=== PATIENT | female | born 1985 | race Caucasian/White ===

== ENCOUNTER 2024-11-30 07:30 | Emergency (ER) | payer OTHER, SELFPAY ==
[2024-11-30 07:30] VITALS: BP 134/99; PULSE 122; RESP 18; TEMP 36.6; O2SAT 100
--- NOTE | 2024-11-30 07:49 | ED.GENADULT ---
HPI - General Adult General Stated complaint: dizzy Time Seen by Provider: 11/30/24 07:49 Course Vital Signs Vital signs: Vital Signs Temperature 36.6 C 11/30/24 07:30 Pulse Rate 122 H 11/30/24 07:30 Respiratory Rate 18 11/30/24 07:30 Blood Pressure 134/99 H 11/30/24 07:30 Pulse Oximetry 100 11/30/24 07:30 Oxygen Delivery Room Air 11/30/24 07:30 Temperature 36.6 C 11/30/24 07:30 Pulse Rate 122 H 11/30/24 07:30 Respiratory Rate 18 11/30/24 07:30 Blood Pressure 134/99 H 11/30/24 07:30 Pulse Oximetry 100 11/30/24 07:30 Oxygen Delivery Room Air 11/30/24 07:30 Medical Decision Making Vital Signs Vital Signs: Vital Signs Temperature 36.6 C 11/30/24 07:30 Pulse Rate 122 H 11/30/24 07:30 Respiratory Rate 18 11/30/24 07:30 Blood Pressure 134/99 H 11/30/24 07:30 Pulse Oximetry 100 11/30/24 07:30 Oxygen Delivery Room Air 11/30/24 07:30 Temperature 36.6 C 11/30/24 07:30 Pulse Rate 122 H 11/30/24 07:30 Respiratory Rate 18 11/30/24 07:30 Blood Pressure 134/99 H 11/30/24 07:30 Pulse Oximetry 100 11/30/24 07:30 Oxygen Delivery Room Air 11/30/24 07:30 Discharge Plan Discharge Patient Language: Mohawk Follow-up/Referrals: Melba,Mora Diamond NP [Primary Care Provider] -
--- NOTE | 2024-11-30 07:50 | ED_ITS ---
HPI - Dizziness General Chief Complaint: Unspecified Stated Complaint: dizzy Time Seen by Provider: 11/30/24 07:49 Source: patient Mode of arrival: ambulatory Limitations: no limitations History of Present Illness HPI Narrative: 39-year-old female with a history of ex smoking,hypertension, anxiety, bipolar disorder, status post lumbar spine surgery on diclofenac presents to the ED with -- anxiety. the patient has not taken usual medications which includes gabapentin, BuSpar and diclofenac. -- hypertension-- Patient is noted to have blood pressure 134/99. She has a heart rate of 122. Patient had been on metoprolol which she has not used for the past 2 days. -- dizziness-- lightheadedness. No vertigo. she has had lightheadedness chin she quit taking her medicine 2 days ago. MD elicited complaint: dizziness Onset (ago): day(s) ( 2 days) Timing: gradual onset Severity: mild Description: lightheadedness Context: change in medication ( Patient stopped taking her medications.) History of similar symptoms: Yes Exacerbating factors: nothing Relieving factors: nothing Associated symptoms: denies other symptoms Related Data Allergies Allergy/AdvReac Type Severity Reaction Status Date / Time No Known Allergies Allergy Verified 11/30/24 07:53 Review of Systems Review of Systems: All systems reviewed & are unremarkable except as noted in HPI and below Constitutional: Constitutional: Reports as per HPI and Reports no additional constitutional complaints Eyes: Eyes: Reports as per HPI and Reports no additional eye complaints ENT: Reports system reviewed and no additional complaints, except as documented and Reports as per HPI Cardiovascular: Cardiovascular: Reports as per HPI and Reports no additional cardiovascular complaints Respiratory: Respiratory: Reports as per HPI and Reports no additional respiratory complaints Gastrointestinal: Gastrointestinal: Reports as per HPI and Reports no additional gastrointestinal complaints Genitourinary: Genitourinary: Reports no additional female genitourinary complaints and Reports as per HPI Musculoskeletal: Musculoskeletal: Reports no additional musculoskeletal complaints and Reports as per HPI Integumentary/Breasts: Skin/Breast: Reports system reviewed and no additional complaints, except as docu and Reports as per HPI Neurologic: Reports system reviewed and no additional complaints, except as documented, Reports as per HPI and Reports dizziness Psychiatric: Psychiatric: Reports no additional psychiatric complaints and Reports as per HPI Endocrine: Endocrine: Reports no additional endocrine complaints and Reports as per HPI Hematologic/Lymphatic: Hematologic/Lymphatic: Reports no additional hematologic/lymphatic complaints and Reports as per HPI Allergic/Immunologic: Allergic/Immunologic: Reports no additional allergic/immunologic complaints and Reports as per HPI [facility] Past Medical History Medical History (Updated 11/30/24 @ 08:25 by Cameron Velásquez MD) Chronic low back pain Hypertension Anxiety Bipolar disorder Surgical History Surgical History (Updated 11/30/24 @ 08:09 by Cameron Velásquez MD) H/O lumbosacral spine surgery Social History Social History (Updated 11/30/24 @ 08:09 by Cameron Velásquez MD) Social History: ex-smoker Exam Narrative: blood pressure 134/99 with a heart rate of 122 Const: General: no acute distress Orientation/consciousness: patient oriented x3 Limitations: no limitations HENMT: Head: normal to inspection Face/Nose/Sinus: Normal external nose present Face and sinus: normal facial exam Mouth: Yes Normal oral and palatal mucosa present Throat: posterior oropharynx normal Eyes: Conjunctivae: conjunctivae normal Pupils: Equal, round and reactive pupils present EOM: EOMs intact bilaterally Direct Ophthalmoscopy: no photophobia Neck: Neck: normal visual inspection, no lymphadenopathy and no meningeal signs Chest: Chest palpation & inspection: normal inspection of the chest Resp: Effort & Inspection: normal respiratory effort Auscultation: clear to auscultation bilaterally Cardio: Rate: tachycardic Rhythm: regular rhythm GI: Auscultation: normal bowel sounds Other: no tenderness/ rigidity /rebound. : General: Yes no CVA tenderness Back/Spine/Pelvis: Back: no CVA tenderness Skin: General skin exam: normal color Rashes: no rashes Wounds: no wounds Neuro: General: patient oriented x3, moves all extremities, no meningeal signs, no focal motor deficits and CN's II-XI intact bilaterally Cranial nerves: Yes Nystagmus not present Speech: normal speech Gait exam (Neuro): Normal gait present Extrem: General: normal to inspection and no clubbing, cyanosis or edema Psych: Mental Status: mental status grossly normal Affect: normal affect Course Course Emergency Course: Hypertension-- noncompliant with medication bipolar disorder anxiety patient does not want to get blood work as she has requested her neighbor to bring her here and does not want her neighbor to wait while we do blood work. the patient is hypertensive. will renew her metoprolol the patient is very anxious and with a history of bipolar 2 will renew BuSpar and venlafaxine Vital Signs Vital signs: Vital Signs Temperature 36.6 C 11/30/24 07:30 Pulse Rate 122 H 11/30/24 07:30 Respiratory Rate 18 11/30/24 07:30 Blood Pressure 134/99 H 11/30/24 07:30 Pulse Oximetry 100 11/30/24 07:30 Oxygen Delivery Room Air 11/30/24 07:30 Temperature 36.6 C 11/30/24 07:30 Pulse Rate 122 H 11/30/24 07:30 Respiratory Rate 18 11/30/24 07:30 Blood Pressure 134/99 H 11/30/24 07:30 Pulse Oximetry 100 11/30/24 07:30 Oxygen Delivery Room Air 11/30/24 07:30 MDM - Dizziness MDM Narrative Medical decision making narrative: Hypertension bipolar disorder anxiety Differential Diagnosis Differential diagnosis: Likely transient cerebral ischemia Discharge Plan Discharge Clinical Impression: Bipolar 2 disorder Hypertension Qualifiers: Hypertension type: unspecified Qualified Code(s): I10 - Essential (primary) hypertension Patient Disposition: Home, Self-Care Condition: Stable Instructions: Antibiotic Form, Bipolar Disorder (ED), Hypertension (ED) Patient Language: Greenlandic Prescriptions: New metoprolol succinate 50 mg tablet extended release 24 hr 50 mg PO DAILY Qty: 30 0RF venlafaxine 150 mg tablet extended release 24hr 150 mg PO DAILY Qty: 30 0RF diclofenac sodium 75 mg tablet,delayed release (DR/EC) 75 mg PO BID PRN (Reason: pain) Qty: 60 0RF buspirone 7.5 mg tablet 7.5 mg PO TID Qty: 30 0RF Follow-up/Referrals: Karena,Mora Diamond CARPENTER [Primary Care Provider] - Time of Disposition: 08:28
--- OUTSIDE RECORDS SUMMARY | 2024-11-30 08:12 | XMS_ITS ---
Author Organization [facility] Address [address] [place] [address] Care Team Providers Care Drafting Supervisor Name Role Phone William Waller MD Primary Care Provider UnavailPrasanth Eisenberg Unavailable [phone] Beka Colbert [phone] REASON FOR VISIT XR1 Recheck LBP Encounters Encounter Location Date Provider Diagnosis [facility] [address] [place] [address] 11/07/2024 Beka Colbert Spondylolysis, lumbar region M43.06 Assessments Encounter Date Diagnosis (ICD Code) Assessment Notes Treatment Notes Treatment Clinical Notes Section Notes 11/07/2024 Spondylolysis, lumbar region (ICD-10 - M43.06) Plan Of Treatment No Information Progress Notes * Beverly SIFUENTES LDOB:1985 (39 yo F)Acc No.[id number]:11/07/2024 Progress Notes Patient: Beverly PARIKH Provider: Steffen Colbert PA-C :1985 A ge:39 Y S ex:Female Date:11/07/2024 Address:[address] [place] [id number] Pcp:William Waller MD Subjective: * Chief Complaints: * 1 . XR1 Recheck LBP. * HPI: H PI: Patient did not show for appt today. * Medical History: Objective: * Vitals: Assessment: * Assessment: 1. S pondylolysis, lumbar region - M43.06 (Primary) Plan: * Treatment: * Procedure Codes: E C106 No Charge Visit * Billing Information: * Visit Code: * Procedure Codes: EC106 No Charge Visit. * Sign off status: Completed true * Provider: Steffen Colbert PA-C Date: 0 11/07/2024 Generated for Siva dasilva/Asya/Edgaritting on: 0 11/30/2024 08:12 AM CDT History and Physical Notes * HPI (History of Present Illness) Category Sub-Category Detail Notes Category Not es HPI Patient did not show for appt today
--- OUTSIDE RECORDS SUMMARY | 2024-11-30 08:12 | XMS_ITS ---
Author Organization [facility] Address [address] [place] [address] Care Team Providers Care Call Manager Name Role Phone William Waller MD Primary Care Provider Prasanth Shepherd Unavailable [phone] REASON FOR VISIT RE:Request please thank you Encounters Encounter Location Date Provider Diagnosis [facility] [address] [place] [address] 07/12/2024 Prasanth Mesa Plan Of Treatment No Information Progress Notes * Beverly SIFUENTES LDOB:1985 (39 yo F)Acc No.[id number]:07/12/2024 Patient: Beverly PARIKH :1985 A ge:39 Y S ex:Female Address:[address] [place] [address], [place] [address] * true * Date: Generated for Linnettei brown/Rupalg/eTransmitting on: 0 11/30/2024 08:12 AM CDT
--- OUTSIDE RECORDS SUMMARY | 2024-11-30 08:12 | XMS_ITS | Patient Health Record ---
Author Organization [facility] Address [address] [place] [address] Care Team Providers Care Life Manager Name Role Phone William Waller MD Primary Care Provider Prasanth Shepherd Unavailable [phone] Beka Colbert Unavailable [phone] Allergies No Known Allergies Results Component Value Reference Range Notes XR L Spine 2-3 views Reviewed date:06/06/2024 02:55:19 PM Interpretation: Performing Lab: Notes/Report: XR L Spine 2-3 views Reviewed date:01/29/2024 06:29:00 PM Interpretation: Performing Lab: Notes/Report: Reason For Referral Reason IPSF L4-S1 with TLIF ; possible structural graft IP 2285 Diagnosis 1 Isthmic spondylolist hesis (M43.10) Referral Organization [facility] Referring Provider First Name Prasanth Referring Provider Last Name Bonita Referring Provider Speciality Orthopedic Surgery Referred Organization [facility] Referred Address [address] [place], [place],[address],[place] Procedure 1 FUSION OF SPINE () Procedure 2 LUMBAR SPINE FUSION (38875) Procedure 3 TREAT SPINE FRACTURE (22813) Procedure 4 SPINE FUSION- EXTRA SEGMENT (21947) Procedure 5 INSERT SPINE FIXATIO N DEVICE (37457) Procedure 6 INSJ BIOMECHANICAL D EVICE (96741) Procedure 7 INSJ BIOMECHANICAL D EVICE (68510) Procedure 8 INSERT PELV FIXATION DEVICE (69993) Procedure 9 REMOVAL OF SPINAL LA STEVE (26250) Procedure 10 SCAN PROC SPINAL (08 641) Procedure 11 SPINAL BONE AUTOGRAF T () Procedure 12 SPINAL BONE ALLOGRAF T () Procedure 13 APPLY- REM FIXATION DEVICE () Procedure 14 CARPIO FACETC/FRMT ARTH RD LUM 1 (37604) Procedure 15 CARPIO FACTC/FRMT ARTHR D LUM EA (37220) General Notes Jeane Chang 2023 10:01:53 AM >Instrumentation: Solera, Titan, XR MOC, MRI in [facility]; report in chart, Veronika Salmon 10/14/2023 01:55:31 PM >Please add facility, Veronika Salmon 10/14/2023 01:56:07 PM >Please upload surgery sheet, Aracely Benavidez 10/15/2023 10:22:25 AM >LVM for pt to call back to discuss surgery, Jeane Chang 10/19/2023 01:46:03 PM >LVM for patient to call back. I will mail no contact letter, Aracely Benavidez 10/21/2023 11:33:46 AM >Will close referral as patient has not called back yet, Aracely Benavidez 11/27/2023 03:04:29 PM >start auth 12/22, Veronika Salmon 11/30/2023 11:27:36 AM >Patel form and clinical faxed to [phone] Antonio Jennifer 12/02/2023 02:48:46 PM >Partial approval. Everything approved except for and . These are not a covered benefit, therefore no appeal or P2P option., Veronika Salmon 12/02/2023 02:49:15 PM >Hospital will get auth for IP stay, Love Kenney 12/04/2023 11:07:39 AM >Will discuss with Prince Nathan Trista 12/09/2023 02:55:25 PM >I spoke with Dr. Mesa who is good with these 2 codes not being approved.Luis Antonio Jennifer 12/10/2023 09:50:30 AM >Noted, Prince gardiner Trista 12/16/2023 11:32:16 AM >Scheduled Surgery for 12/30/2023Luis Antonio Jennifer 12/16/2023 01:48:00 PM >Spoke to Jorge and got the auth date range of 12/22 to 06/23 Clinical Notes Suzan Harris 024 01:22:51 PM >add [id number] Juan Diegoalexi 12/16/2023 02:20:03 PM >noted, added to auth spread sheet Referral Priority Routine Referral Appointment Date 12/30/2023 Reason LOW BACK PAIN Diagnosis 1 Spondylolisthesis, l umbar region (M43.16) Diagnosis 2 Lumbar spondylosis ( M47.816) Diagnosis 3 Lumbar radiculopathy (M54.16) [facility] Referred Provider Prasanth Mesa Referred Address [address], [place],[address], Referral Priority Routine Medications Medication SIG (Take, Route, Frequency, Duration) Notes Start Date End Date Status HYDROcodone-Acetaminophen 10-325 MG 1 tablet Orally every 8 hours as needed for pain No more refills of this medication 06/03/2024 Active Diclofenac Sodium 75 MG Oral for 30 Days Active Diclofenac Sodium 75 MG TAKE 1 TABLET BY MOUTH EVERY 12 HOURS Oral for 30 Days Active Venlafaxine HCl ER 150 MG Oral for 30 Days Active Metoprolol Succinate ER 50 MG TAKE 1 TABLET BY MOUTH ONCE DAILY Oral for 30 Days Active Gabapentin 800 MG Oral for 30 Days Active clonazePAM 1 MG TAKE 1 TABLET BY DENILSON TH ONCE DAILY NEEDED FOR PANIC ATTACK/ANXIETY Oral for 28 Days Active Social History Tobacco Use: Social History Observation Description Date Details (start date - stop date) Never Smoker NA - NA Tobacco Control (Standard) Question Answer Notes Tobacco use: Nonsmoker Problems Problem Type SNOMED Code ICD Code Onset Dates Problem Status W/U Status Risk Notes Problem Acquired spondylolisthesis (094269890) Spondylolysis, lumbar region (M43.06) Active confirmed Problem Acquired spondylolisthesis (627987869) Spondylolisthesis, lumbar region (M43.16) Active confirmed Problem Lumbosacral spondylosis without myelopathy (78997282) Other spondylosis, lumbar region (M47.896) Active confirmed Problem 395125385 Lumbar spondylos is (M47.816) Active confirmed Problem 909778389 Isthmic spondylolisthesis (M43.10) Active confirmed Vital Signs Height-cm 154.94 cm 06/06/2024 Weight-kg 54.43 kg 06/06/2024 Height 61 in 06/06/2024 Weight 120 lbs 06/06/2024 BMI 22.67 kg/m2 06/06/2024 Encounters Encounter Location Date Provider Diagnosis [facility] [address] [place] [address] 03/21/2024 Prasanth Mesa S/P lumbar fusion Z98.1 [facility] [address] [place] [address] 12/30/2023 Prasanth Mesa Spondylolisthesis, lumbar region M43.16 ; Other spondylosis, lumbar region M47.896 and Radiculopathy, lumbar region M54.16 [facility] [address] [place] [address] 01/29/2024 Prasanth Mesa Lumbar spondylosis M47.816 ; Radiculopathy, lumbar region M54.16 ; Spondylolysis, lumbar region M43.06 and Spondylolisthesis, lumbar region M43.16 [facility] [address] [place] [address] 02/15/2024 Prasanth Mesa S/P lumbar fusion Z98.1 [facility] [address] [place] [address] 06/06/2024 Beka Colbert Postoperative visit Z48.89 [facility] [address] [place] [address] 11/07/2024 Beka Colbert Spondylolysis, lumbar region M43.06 [facility] [address] [place] [address] 12/23/20[facility] [address] [place] [address] 12/24/2023 [facility] [address] [place] [address] 12/25/2023 [facility] [address] [place] [address] 12/29/2023 [facility] [address] [place] [address] 01/07/2024 Prasanth Mulconrey [facility] [address] [place] [address] 01/14/2024 [facility] [address] [place] [address] 01/18/2024 [facility] [address] [place] [address] 01/18/2024 [facility] [address] [place] [address] 01/25/2024 [facility] [address] [place] [address] 01/26/2024 [facility] [address] [place] [address] 01/29/2024 [facility] [address] [place] [address] 02/10/2024 [facility] [address] [place] [address] 03/02/2024 [facility] [address] [place] [address] 03/23/2024 [facility] [address] [place] [address] 04/05/2024 [facility] [address] [place] [address] 04/08/2024 [facility] [address] [place] [address] 04/25/2024 [facility] [address] [place] [address] 04/27/2024 [facility] [address] [place] [address] 04/29/2024 [facility] [address] [place] [address] 05/10/2024 [facility] [address] [place] [address] 05/20/2024 [facility] [address] [place] [address] 05/31/2024 Prasanth Joaooscar [facility] [address] [place] [address] [facility] [address] [place] [address] 07/11/2024 Prasanth [facility] [address] [place] [address] [facility] [address] [place] [address] 07/11/2024 Prasanth [facility] [address] [place] [address] 07/12/2024 Prasanth Mesa Assessments Encounter Date Diagnosis (ICD Code) Assessment Notes Treatment Notes Treatment Clinical Notes Section Notes 01/29/2024 Radiculopathy, lumbar region (ICD-10 - M54.16) 01/29/2024 Lumbar spondylosis (ICD-10 - M47.816) 02/15/2024 S/P lumbar fusion (ICD-10 - Z98.1) 03/21/2024 S/P lumbar fusion (ICD-10 - Z98.1) 06/06/2024 Postoperative visit (ICD-10 - Z48.89) 11/07/2024 Spondylolysis, lumbar region (ICD-10 - M43.06) 12/30/2023 Spondylolisthesis , lumbar region (ICD-10 - M43.16) 12/30/2023 Other spondylosis, lumbar region (ICD-10 - M47.896) 12/30/2023 Radiculopathy, lumbar region (ICD-10 - M54.16) 01/29/2024 Spondylolysis, lumbar region (ICD-10 - M43.06) 01/29/2024 Spondylolisthesis , lumbar region (ICD-10 - M43.16) 01/29/2024 Other I will see her back in 6 weeks time This patient had severe deformity of her lumbar sacral spine. She had high-grade spondylolisthesis at L5-S1 segment. With her severe lumbar pain and lower extremity pain which was secondary to this spinal condition patient would have been unable to be employed prior to her surgical procedure. She had severe back pain with severe lower extremity radiculopathy which impeded her ability to walk stand or even obtain a comfortable position. This is been a chronic condition present for several years prior to surgical procedure. She is currently healing well and the normal postoperative course. Disclaimer: To increase efficiency your provider prepared this document using voice recognition technology. If a word or phrase is confusing, or does not make sense, this is likely due to a recognition error within the program which was not discovered during the provider's review. If you believe an error has occurred, please notify your provider's office at your earliest convenience, so we can correct any mistakes. 06/06/2024 Other Patient seen today 5-month status post L4-S1 posterior spinal fusion instrumentation with reduction of high-grade spondylolisthesis. Patient continues to do well. X-rays were obtained today and reviewed. Patient reports her preop leg pain has completely resolved. She is still experiencing some mild low back pain which is expected. She is encouraged to continue going for daily walks. She will follow-up in roughly 7 months when she is 1 year postop. Disclaimer: To increase efficiency your provider prepared this document using voice recognition technology. If a word or phrase is confusing, or does not make sense, this is likely due to a recognition error within the program which was not discovered during the provider's review. If you believe an error has occurred, please notify your provider's office at your earliest convenience, so we can correct any mistakes. Plan Of Treatment No Information Insurance Providers Payer Name Payer Address Payer Phone Subscriber Number Group Number Insured Name Patient Relationship to Insured Coverage Start Date Coverage End Date [place] [employer] AUTH REQ [address] [place] [phone] [id number] Beverly Sifuentes Self - patient is the insured 3 Medical (General) History Medical History History ICD Code hypertension depression anxiety Surgical History Surgery Date(Month/Year) IPSF L$/5 With TLIF possible structural graft 12/30/23 spinal fusion
--- OUTSIDE RECORDS SUMMARY | 2024-11-30 08:13 | XMS_ITS ---
Author Organization [facility] Address [address] [place] [address] Care Team Providers Care Plugger Worker Name Role Phone William Waller MD Primary Care Provider Prasanth Shepherd Unavailable [phone] REASON FOR VISIT pain Encounters Encounter Location Date Provider Diagnosis [facility] [address] [place] [address] 09/28/2024 Prasanth Mesa Plan Of Treatment No Information Progress Notes * Beverly SIFUENTES LDOB:1985 (39 yo F)Acc No.[id number]:09/28/2024 Patient: Beverly PARIKH Roxanne :1985 A ge:39 Y S ex:Female Address:[address] [place] [address], [place] [address] * true * Date: Generated for Linnettei brown/Rupalg/eTransmitting on: 0 11/30/2024 08:12 AM CDT
[2024-11-30 08:37] VITALS: BP 132/98; PULSE 118; RESP 18; O2SAT 99
--- NOTE | 2024-11-30 08:38 | PC.NURSE ---
ERP ORDERED LAB WORK AND EKG, PT REFUSED STATING SHE DOES NOT HAVE TIME TO HAVE IT COMPLETED SHE CAME WITH A NEIGHBOR. PT REPORTS SHE HAD RAN OUT OF HER MEDICATIONS BECAUSE SHE DID NOT HAVE TRANSPORTATION TO HER PMD APPOINTMENT. PT COMES OUT OF EXAM ROOM REQUESTING AN EFFEXOR SO I CAN GET IT IN MY SYSTEM. ERP HAS WRITTEN RX REFILLS FOR PT AND THEY WERE SENT TO PHARMACY.
== END 2024-11-30 08:37 | disposition home or self-care (01) ==
PROVIDERS: Emergency Provider Internal Medicine Critical Care Medicine; PCP Nurse Practitioner
DX: F31.81 Bipolar II disorder (principal); I10 Essential (primary) hypertension; F41.9 Anxiety disorder, unspecified; Z91.148 Patient's other noncompliance with medication regimen for other reason
CPT/HCPCS: 99283